=== PATIENT | female | born 1980 | race Caucasian/White ===

== ENCOUNTER 2017-12-15 07:33 | Emergency (ER) | payer BC ==
[2017-12-15 07:59] LABS: URINE BLOOD (Dip) POC 3+ (NEGATIVE); URINE GLUCOSE (Dip) POC Negative (NEGATIVE); URINE KETONES (Dip) POC Negative (NEGATIVE); URINE LEUKOCYTE EST (Dip) POC 1+ (NEGATIVE); URINE NITRITE (Dip) POC Positive (NEGATIVE); URINE TOTAL PROTEIN POC 1+ (NEGATIVE)
[2017-12-15 07:59] LABS: URINE PH (Dip) POC 5.5 (5.0-8.5)
== END 2017-12-15 08:10 | disposition home or self-care (01) ==
LOC: FTE 07:33
DX: N30.90 Cystitis, unspecified without hematuria (principal)
CPT/HCPCS: 81003; 81025; 87086; 99283

== ENCOUNTER 2018-05-09 07:39 | Emergency (ER) | payer BC | END 2018-05-09 08:15 | disposition home or self-care (01) | LOC: FTE 07:39 | DX: J03.90 Acute tonsillitis, unspecified (principal) | CPT/HCPCS: 99283 ==

== ENCOUNTER 2018-10-25 07:32 | Emergency (ER) | payer BC ==
[2018-10-25] MEDS: PHENAZOPYRIDINE 100 MG TAB PO (08:19)
[2018-10-25] MEDS: CIPROFLOXACIN 250 MG TAB PO (08:33)
[2018-10-25 08:42] LABS: ADD UMIC YES; UR ASCORBIC ACID NEGATIVE (NEGATIVE); UR BACTERIA FEW /HPF (NONE SEEN); UR BILIRUBIN (Dip) NEGATIVE (NEGATIVE); UR BLOOD (Dip) 2+ mg/dL (NEGATIVE); UR CLARITY CLOUDY (CLEAR); UR COLOR AMBER (YELLOW); UR GLUCOSE (Dip) NEGATIVE (NEGATIVE); UR KETONES (Dip) TRACE mg/dL (NEGATIVE); UR LEUKOCYTE ESTERASE (Dip) 3+ Leu/ul (NEGATIVE); UR NITRITE (Dip) POSITIVE (NEGATIVE); UR RBC 30 /HPF (0-5); UR SPECIFIC GRAVITY (Dip) 1.015 (1.003-1.030); UR SQUAMOUS EPITHELIAL CELL FEW /HPF (FEW); UR TOTAL PROTEIN (Dip) 1+ mg/dl (NEGATIVE); UR UROBILINOGEN (Dip) 2+ mg/dL (NEGATIVE); UR WBC > 182 /HPF (0-5)
== END 2018-10-25 09:01 | disposition home or self-care (01) ==
LOC: FTE 09:01
DX: N30.00 Acute cystitis without hematuria (principal)
CPT/HCPCS: 81001; 81025; 87086; 99283